=== PATIENT | male | born 1970 | race Caucasian/White ===

== ENCOUNTER 2016-11-30 12:18 | Emergency (ER) | payer OTHER ==
[~2016-11-30] VITALS: Ht 182.9 cm; Wt 76.2 kg
[2016-11-30 12:23] VITALS: BP 124/81
[2016-11-30] MEDS ORDERED: HYDROCODONE/APAP 5/325MG 1 EACH TABLET ONE (12:47)
[2016-11-30] MEDS: HYDROCODONE/APAP 5/325MG 1 EACH TABLET PO ONE (12:51)
== END 2016-11-30 13:38 | disposition home or self-care (01) ==
LOC: ER 12:20
DX: S16.1XXA Strain of muscle, fascia and tendon at neck level, initial encounter (principal); J00 Acute nasopharyngitis [common cold]; W18.30XA Fall on same level, unspecified, initial encounter; Y93.89 Activity, other specified; Y92.89 Other specified places as the place of occurrence of the external cause; Y99.8 Other external cause status
CPT/HCPCS: 72125; 99284; A4606; Z7610

== ENCOUNTER 2017-05-14 16:18 | Emergency (ER) | payer OTHER ==
[~2017-05-14] VITALS: Ht 185.4 cm; Wt 77.1 kg
[2017-05-14 16:20] VITALS: BP 144/1
--- NOTE | 2017-05-14 16:52 | NUR ---
BARNEY SANFORD AT BEDSIDE FOR EVAL.
[2017-05-14] MEDS ORDERED: ACETAMINOPHEN W/ CODEINE#3 1 EA TABLET ONE (16:58)
[2017-05-14] MEDS ORDERED: IBUPROFEN 600 MG TABLET PO ONE ×2 (16:58→17:00)
[2017-05-14] MEDS ORDERED: LIDOCAINE 1% INJ 50 ML MDV IJ ONE (16:58)
[2017-05-14] MEDS ORDERED: ACETAMINOPHEN W/ CODEINE#3 1 EA TABLET PO ONE (17:00)
[2017-05-14] MEDS ORDERED: LIDOCAINE HCL/PF 1% 30 ML VIAL TP ONE (17:00)
[2017-05-14 17:03] LABS: BASOPHILS # (AUTO) 0.5 /CMM (0.0-0.2); BASOPHILS % (AUTO) 4.4 % (0.0-2.0); EOSINOPHILS # (AUTO) 0.1 /CMM (0.0-0.7); EOSINOPHILS % (AUTO) 0.7 % (0.0-6.0); HEMATOCRIT 42 % (39-51); HEMOGLOBIN 14.1 g/dL (13.5-17.5); LYMPHOCYTES # (AUTO) 0.9 /CMM (0.8-4.8); LYMPHOCYTES % (AUTO) 8.1 % (20.0-44.0); MEAN CORPUSCULAR HEMOGLOBIN 31 PG (26.0-33.0); MEAN CORPUSCULAR HGB CONC 34 g/dl (31.0-36.0); MEAN CORPUSCULAR VOLUME 91 fL (80-96); MONOCYTES # (AUTO) 0.9 /CMM (0.1-1.30); MONOCYTES % (AUTO) 7.5 % (2.0-12.0); NEUTROPHILS # (AUTO) 9.3 /CMM (1.8-8.9); NEUTROPHILS % (AUTO) 79.3 % (43.0-81.0); PLATELET COUNT (AUTO) 176 /CMM (150-450); WHITE BLOOD COUNT (AUTO) 11.7 K/uL (4.3-11.0)
[2017-05-14 17:10] LABS: CALCIUM, SERUM 9.3 mg/dL (8.5-10.1); CREATININE 1.1 mg/dL (0.6-1.3); POTASSIUM 3.7 mmol/L (3.5-5.1)
[2017-05-14 17:16] LABS: ALBUMIN 4.1 g/dL (3.4-5.0); BILIRUBIN,TOTAL 0.6 mg/dL (0.2-1.0); TOTAL PROTEIN, SERUM 7.7 g/dL (6.4-8.2)
[2017-05-14] MEDS ORDERED: HYDROMORPHONE INJ 2 MG/ML DISP.SYRIN ONE (17:50)
--- NOTE | 2017-05-14 17:59 | NUR ---
DILAUDID 1MG IM TO R DELTOID GIVEN PER ERMD VERBAL ORDER.
[2017-05-14] MEDS ORDERED: HYDROMORPHONE INJ 2 MG/ML DISP.SYRIN IM ONE (20:00)
== END 2017-05-14 19:39 | disposition home or self-care (01) ==
LOC: ER 16:27
DX: M70.22 Olecranon bursitis, left elbow (principal); L03.114 Cellulitis of left upper limb; F10.10 Alcohol abuse, uncomplicated; Y93.89 Activity, other specified
CPT/HCPCS: 36415; 80053; 85025; 96372; 99284; A4606; A6402 ×2; J1170; J3490 ×2; Z7610